=== PATIENT | female | born 1975 | race Caucasian/White ===

== ENCOUNTER 2020-09-21 03:54 | Emergency (ER) | payer OTHER ==
[~2020-09-21] VITALS: Ht 170.2 cm; Wt 83.5 kg
[2020-09-21 04:27] LABS: ABSOLUTE EOSINOPHILS 0.7 thou/uL (0.0-0.7); ABSOLUTE LYMPHOCYTES 2.5 thou/uL (0.8-5.3); ABSOLUTE MONOCYTES 0.6 thou/uL (0.0-1.2); ABSOLUTE NEUTROPHILS 4.5 thou/uL (1.6-8.1); BASOPHILS 0.5 %; EOSINOPHILS 8.7 %; HEMATOCRIT 41.8 % (37.0-47.0); HEMOGLOBIN 14.5 gm/dL (12.0-15.0); LYMPHOCYTES 29.4 %; MCH 30.9 pg (26.0-34.0); MCHC 34.6 g/dL (28.0-37.0); MCV 89.5 fL (80.0-100.0); MONOCYTES 7.4 %; MPV 7.8 fl. (7.2-11.1); NUCLEATED RBCS 0 /100WBC; PLATELET COUNT* 307 thou/uL (150-400); RBC 4.67 mil/uL (4.20-5.00); RDW-CV 12.9 % (10.5-14.5); WBC 8.4 thou/uL (4.0-11.0)
[2020-09-21 04:42] LABS: APTT 23.7 Seconds (25.0-31.3); PROTIME 10.4 Seconds (9.20-11.50)
[2020-09-21 04:43] LABS: CALCIUM 9.1 mg/dL (8.5-10.1); CREATININE 0.9 mg/dL (0.6-1.3); POTASSIUM 3.4 mmol/L (3.5-5.1)
[2020-09-21 04:56] LABS: ALBUMIN 4.2 g/dL (3.4-5.0); MAGNESIUM 1.8 mg/dL (1.8-2.4); TOTAL BILIRUBIN 0.6 mg/dL (<0.1-1.0); TOTAL PROTEIN 7.9 g/dL (6.4-8.2)
[2020-09-21 05:20] VITALS: BP 135/74
--- NOTE | 2020-09-22 13:40 | EKG ---
[place] [address] ELECTROCARDIOGRAM REPORT Name: PAUL TIAN Room: [facility]#: [id number] Admission: 09/21/20 Attend Phys: Discharge: 09/21/20 Date of : 77 Date of Service: 09/21/20 0406 Report #: [id number] THIS REPORT FOR: //name// [facility] ED Test Date: 2020-09-21 Test Time: 04:06:56 Pat Name: PAUL TIAN Department: Room: Gender: Manager Mail: MAGALI : 1975 Requested By: Dwayne Lema Order Number: [id number] MD: Mal Verma Measurements Intervals [place] Rate: 79 P: 63 AK: 162 QRS: 5 QRSD: 110 T: 38 QT: 406 QTc: 466 Interpretive Statements Sinus rhythm RSR' in V1 or V2, probably normal variant Baseline wander in lead(s) III,aVF,V1,V4 No previous ECG available for comparison Electronically Signed On 09-22-2020 13:40:31 CDT by Mal Verma [email or web address] <ELECTRONICALLY SIGNED> By: Mal Verma MD, FACC 09/22/20 1340 0406 0406 Mal Verma MD, FAC /EPI
== END 2020-09-21 05:20 | disposition home or self-care (01) ==
LOC: M.ERS 03:54
PROVIDERS: Family Medicine
DX: R07.89 Other chest pain (principal); Z98.890 Other specified postprocedural states